=== PATIENT | male | born 1995 | race Caucasian/White ===

== ENCOUNTER 2024-08-02 19:12 | Emergency (ER) | payer SELFPAY ==
--- NOTE | ~2024-08-02 | CT_ITS ---
History: Abnormal ideation PROCEDURE: CT head without contrast. COMPARISON: None TECHNIQUE: Axial imaging of the head performed from the skull base to the vertex without IV contrast. Sagittal a nd coronal reformations obtained. DLP: 681 mGy-cm FINDINGS: The ventricles are normal in size, shape and position. There is no mass, mass effect or midline shift. There is no abnormal extra-axial fluid collection or intracranial hemorrhage. Visualized paranasal sinuses are clear. The mastoid air cells are well aerated. No acute displaced fractures within the overlying cranium. Impression: No acute intracranial hemorrhage or suspicious mass effect. Reviewed, dictated and finalized at location A. Impression: No acute intracranial hemorrhage or suspicious mass effect.
[2024-08-02 19:40] VITALS: BP 155/88; PULSE 102; RESP 18; TEMP 36.7; O2SAT 97
[2024-08-02 20:03] LABS: Basophils Absolute Auto 0.1 K/mm3 (0.0-0.1); Basophils Percent Auto 0.9 % (0.2-1.2); Eosinophils Absolute Auto 0.1 K/mm3 (0-0.3); Eosinophils Percent Auto 0.9 % (0-4.4); Hematocrit 45.8 % (42.0-52.0); Hemoglobin 14.6 g/dL (14.0-18.0); Immature Granulocyte Absolute 0.01 K/mm3 (0.00-0.031); Immature Granulocyte Percent A 0.2 % (0-0.5); Lymphocytes Absolute Auto 1.85 K/mm3 (0.9-3.2); Lymphocytes Percent Auto 31.8 % (18.3-44.2); Mean Corpuscular HGB Conc 31.9 g/dl (32-36); Mean Corpuscular Volume 84.8 fl (80-100); Mean Platelet Volume 9.3 fl (7.4-10.4); Monocytes Absolute Auto 0.5 K/mm3 (0.1-0.6); Monocytes Percent Auto 7.9 % (2.6-8.5); Neutrophils Absolute Auto 3.4 K/mm3 (1.3-6.7); Neutrophils Percent Auto 58.3 % (45.5-73.1); Platelet Count Result 330 k/mm3 (150-375); Red Cell Distribution Width 12.2 % (11.5-14.5); White Blood Count 5.8 K/mm3 (4.5-10.0)
[2024-08-02 20:13] LABS: Ethanol < 10 mg/dL (<10)
[2024-08-02 20:14] LABS: Alanine Aminotransferase 39 U/L (6-50); Albumin Level 4.7 g/dL (3.5-5.1); Alkaline Phosphatase 52 U/L (38-126); Anion Gap 9 mmol/L (4-12); Aspartate Amino Transferase 28 U/L (17-59); Bilirubin,Total 0.5 mg/dL (0.2-1.3); Blood Urea Nitrogen 14 mg/dL (9-20); Calcium 9.2 mg/dL (8.4-10.2); Carbon Dioxide 25 mmol/L (22-30); Chloride 107 mmol/L (98-107); Estimated CRCL calculation 108 ml/min; Estimated Glomerular Filt Rate > 60; Glucose 95 mg/dL (65-110); Potassium 3.9 mmol/L (3.4-5.0); Sodium 141 mmol/L (137-145)
--- NOTE | 2024-08-02 20:22 | PC.NURSE ---
pt notes for more than a year he has been having a 'brain fog and pressure in his eyes'. notes around this same time he has been having suicidal ideations. admits to multiple attempts to kill himself by walking along a busy [place] with a knife. pt denies having an hx of psychiatric problems. denies ever being admitted to a psychatric unit or seeing a psychiatrist. denies being on any home meds. admits to having a former roommate giving him Wellbutrin and it made him feel better. pt states he is tired of feeling this way and wants help.
[2024-08-02 20:45] LABS: Acetaminophen < 10 ug/mL (10-30); Salicylate < 1.0 mg/dL (2-20)
[2024-08-02] MEDS: diphenhydrAMINE HCl CAP 25 MG CAPSULE PO (20:47)
[2024-08-02] MEDS: METOCLOPRAMIDE HCL 10 MG TABLET PO (20:47)
[2024-08-02] MEDS: KETOROLAC 30 MG/ML VIAL (*BKC) IM (20:47)
[2024-08-02 21:12] LABS: Add Urine Microscopic? NO; Appearance Urine Clear (Clear); Bilirubin Urine Negative (Negative); Blood Urine Negative (Negative); Color Urine Yellow (Yellow); Glucose Urine UA Negative (Negative); Ketones Urine Negative (Negative); Leukocyte Esterase Ur Negative LEU/UL (Negative); Nitrate Urine Negative (Negative); Protein Urine Negative (Negative); Specific Grav Ur 1.021 (1.001-1.035); Urobilinogen Urine 0.2 mg/dL (<2.0)
[2024-08-02 21:29] LABS: Amphetamine Screen Urine Negative (Negative); Barbiturate Screen Urine Negative (Negative); Benzodiazepines Screen Urine Negative (Negative); Cannabinoid Screen Urine Positive (Negative); Cocaine Screen Urine Negative (Negative); Methadone Screen Urine Negative (Negative); Opiate Screen Urine Negative (Negative); Phencyclidine Screen Urine Negative (Negative)
--- NOTE | 2024-08-02 21:36 | ED_ITS ---
HPI - Psych General Chief Complaint: Psychiatric Symptoms Stated Complaint: head pressure x about 1 year Time Seen by Provider: 08/02/24 20:07 History of Present Illness HPI Narrative: 29-year-old male with no past medical history presents to emergency department for multiple medical complaints. Patient states for the past year he has had intermittent headaches to throughout his head he describes as a tight band sensation. States he gets associated tingling to his head and ?brain fog?. He reports associated photophobia. States he has been taking Tylenol and ibuprofen with some improvement in symptoms. Denies head injury or trauma, nausea vomiting, fever nuchal rigidity. He is also reporting suicidal ideation for several months. He states over the past year he has thought about suicide plans which include walking [place] miles on the highway with a knife with plans to stab himself and thoughts of turning on the car while sitting in the garage, however states he did not move forward with either these plans. He denies current suicidal plan. Denies homicidal ideations, hallucinations, access to weapons or firearms. Admits to social alcohol use. Denies drug use. Denies prior history of psychiatric admissions or diagnoses. Related Data Allergies Allergy/AdvReac Type Severity Reaction Status Date / Time No Known Allergies Allergy Verified 08/02/24 19:44 Review of Systems 2 Review of Systems: All systems reviewed & are unremarkable except as noted in HPI and below PMFSH Social History Social History Substance use type: does not use Exam 2 Narrative: GENERAL: Well-appearing, well-nourished, and in no acute distress. HEAD: Normocephalic, atraumatic. EYES: EOMI. ENT: Nares clear, no rhinorrhea or epistaxis. Mucous membranes moist. NECK: Supple. No nuchal rigidity CHEST: Clear to auscultation. No respiratory distress. HEART: Regular rate and rhythm. No murmur heard. Normal peripheral pulses. ABDOMEN: Soft, nontender, nondistended, normal active bowel sounds. EXTREMITIES: Normal range of motion. No edema. SKIN: Warm, dry, no rash. NEURO: No focal deficits. Alert and oriented x4. Cranial nerves 2-12 intact. Strength 5/5 in BUE and BLE. Sensation intact throughout. Normal [id number]. No pronator drift. PSYCH: Admits to SI, no current plan. Denies HI. Not responding to internal stimuli. Avoiding eye contact. Anxious Course Vital Signs Vital signs: Vital Signs Temperature 98.1 F 08/02/24 19:40 Pulse Rate 102 H 08/02/24 19:40 Respiratory Rate 18 08/02/24 19:40 Blood Pressure 155/88 H 08/02/24 19:40 Pulse Oximetry 97 08/02/24 19:40 Oxygen Delivery Room Air 08/02/24 19:40 Temperature 98.1 F 08/02/24 19:40 Pulse Rate 102 H 08/02/24 19:40 Respiratory Rate 18 08/02/24 19:40 Blood Pressure 155/88 H 08/02/24 19:40 Pulse Oximetry 97 08/02/24 19:40 Oxygen Delivery Room Air 08/02/24 19:40 MDM - Psych MDM Narrative Medical decision making narrative: 29-year-old male presents to the emergency department for intermittent headaches and brain fog for several months as well as suicidal ideation. See HPI for further history. Vitals with elevated blood pressure. Patient is afebrile nontoxic appearing. He is neurovascularly intact. He denies a plan for SI. Given reported ?brain fog?, will obtain CT brain is in addition to psychiatric workup and consult crisis. CT brain shows no acute intracranial findings. Patient received headache cocktail with improvement in symptoms. His lab work is unremarkable. He did test positive for cannabinoids. ETOH less than 10 and TSH is within normal limits. Reported headaches consistent with tension headache. Suspect ?brain fog? is likely due to undiagnosed depression. Patient medically cleared for crisis evaluation. Patient evaluated by crisis. He is now denying any SI or HI. They feel he is safe to be discharged home with close follow-up. He was given a safety plan and strict ED return precautions. He is agreeable to plan verbalized understanding. Discharged in stable condition. Lab Data 08/02/24 19:57 08/02/24 19:57 Labs: Lab Results 08/02/24 08/02/24 Range/Units 19:57 20:53 WBC 5.8 (4.5-10.0) K/mm3 RBC 5.40 (4.6-6.20) M/mm3 Hgb 14.6 (14.0-18.0) g/dL Hct 45.8 (42.0-52.0) % MCV 84.8 (80-100) fl MCH 27.0 (26-34) pg MCHC 31.9 L (32-36) g/dl RDW 12.2 (11.5-14.5) % Plt Count 330 (150-375) k/mm3 MPV 9.3 (7.4-10.4) fl Immature Gran % (Auto) 0.2 (0-0.5) % Neut % (Auto) 58.3 (45.5-73.1) % Lymph % (Auto) 31.8 (18.3-44.2) % [place] % (Auto) 7.9 (2.6-8.5) % Eos % (Auto) 0.9 (0-4.4) % Baso % (Auto) 0.9 (0.2-1.2) % Lymph # (Auto) 1.85 (0.9-3.2) K/mm3 [place] # (Auto) 0.5 (0.1-0.6) K/mm3 Eos # (Auto) 0.1 (0-0.3) K/mm3 Baso # (Auto) 0.1 (0.0-0.1) K/mm3 Abs Immat Gran (auto) 0.01 (0.00-0.031) K/mm3 Absolute Neuts (auto) 3.4 (1.3-6.7) K/mm3 Absolute Nucleated RBC 0.000 (0.0-0.012) K/mm3 Nucleated RBC % 0.0 (0.0-0.2) % Sodium 141 (137-145) mmol/L Potassium 3.9 (3.4-5.0) mmol/L Chloride 107 (98-107) mmol/L Carbon Dioxide 25 (22-30) mmol/L Anion Gap 9 (4-12) mmol/L BUN 14 (9-20) mg/dL Creatinine 0.95 (0.7-1.3) mg/dL Estim Creat Clear Calc 108 ml/min Estimated GFR > 60 (59 - ) Glucose 95 (65-110) mg/dL Calcium 9.2 (8.4-10.2) mg/dL Total Bilirubin 0.5 (0.2-1.3) mg/dL AST 28 (17-59) U/L ALT 39 (6-50) U/L Alkaline Phosphatase 52 (38-126) U/L Total Protein 8.0 (6.3-8.2) g/dL Albumin 4.7 (3.5-5.1) g/dL TSH (Reflex) 1.350 (0.465-4.68) uIU/mL Urine Color Yellow (Yellow) Urine Appearance Clear (Clear) Urine pH 6.0 (5.0-9.0) Ur Specific [place] 1.021 (1.001-1.035) Urine Protein Negative (Negative) mg/dL Urine Glucose (UA) Negative (Negative) mg/dL Urine Ketones Negative (Negative) mg/dL Ur Blood (Man) Negative (Negative) Urine Nitrate Negative (Negative) Urine Bilirubin Negative (Negative) Urine Urobilinogen 0.2 (<2.0) mg/dL Leukocyte Esterase Rfl Negative (Negative) BHAVIN/UL Salicylates < 1.0 L (2-20) mg/dL Urine Opiates Screen Negative (Negative) Urine Methadone Screen Negative (Negative) Acetaminophen < 10 L (10-30) ug/mL Ur Barbiturates Screen Negative (Negative) Ur Phencyclidine Scrn Negative (Negative) Ur Amphetamine Screen Negative (Negative) U Benzodiazepines Scrn Negative (Negative) Urine Cocaine Screen Negative (Negative) U Cannabinoids Screen Positive A (Negative) Ethyl Alcohol < 10 (<10) mg/dL Influenza A (RT-PCR) Negative (Negative) Influenza B (RT-PCR) Negative (Negative) RSV (RT-PCR) Negative (Negative) SARS-CoV-2 RNA (RT-PCR) Negative (Negative) Discharge Plan Discharge Clinical Impression: History of suicidal ideation Headache Qualifiers: Headache type: tension-type Headache chronicity pattern: chronic headache I ntractability: not intractable Qualified Code(s): G44.229 - Chronic tension-type headache, not intractable Patient Disposition: Home Condition: Stable Instructions: Antibiotic Form, Acute Headache (DC), Help Prevent Suicide (ED) Additional Instructions: You were evaluated in the emergency department for headaches and suicidal ideation. Your neurologic exam CT brain was reassuring. You were evaluated by our crisis team and felt appropriate for outpatient management. Please follow- up closely with the crisis team and primary care provider I have referred you to. Take Tylenol ibuprofen as needed for headache and pain. Return to the emergency department if you develop vision changes, focal numbness or weakness, fever, thoughts of harming herself or other people, or other concerning symptoms. Patient Language: Indonesian Follow-up/Referrals: PHYSICIAN,SUPERVISOR [employer] [Primary Care Provider] - Sam Singh MD [Physician] -
[2024-08-02 21:48] LABS: Influenza A QL RT-PCR Negative (Negative); Influenza B QL RT-PCR Negative (Negative); RSV RNA, RT-PCR Negative (Negative); SARS-CoV-2 RNA PCR Negative (Negative)
--- NOTE | 2024-08-02 21:57 | PC.NURSE ---
Tonja with [facility] ([phone]) notified pt has been medically cleared. States arrival time of approximately 90 mins for assessment
[2024-08-03 00:26] VITALS: BP 127/76; PULSE 76; RESP 16; TEMP 36.5; O2SAT 98
== END 2024-08-03 00:28 | disposition home or self-care (01) ==
PROVIDERS: Emergency Medicine; Emergency Provider Physician Assistant
DX: G44.229 Chronic tension-type headache, not intractable (principal); R45.851 Suicidal ideations; Z11.52 Encounter for screening for COVID-19
CPT/HCPCS: 36415; 70450; 80053; 80143; 80179; 80307; 81003; 82077; 84443; 85025; 87637; 96372; 99284; A9270; J1885